=== PATIENT | male | born 1960 | race Caucasian/White ===

== ENCOUNTER 2017-10-30 11:35 | Outpatient (CLI) | payer BC | END 2017-10-30 11:36 | disposition home or self-care (01) | LOC: BICRAD 11:35 | PROVIDERS: ATTEND Family Medicine | DX: R07.89 Other chest pain (principal) | CPT/HCPCS: 71046 ==

== ENCOUNTER 2019-11-18 12:53 | Outpatient (CLI) | payer BC ==
--- NOTE | 2019-11-18 13:07 | RAD ---
RADIOGRAPH CHEST 2 VIEWS: DATE: 11/18/2019 HISTORY: 58-year-old male with dyspnea on exertion FINDINGS: There is no airspace density, pulmonary edema, pleural effusion, pneumothorax, or cardiomegaly. IMPRESSION: No acute cardiopulmonary findings.
== END 2019-11-18 12:54 | disposition home or self-care (01) ==
LOC: RAD 12:53
PROVIDERS: ATTEND Physician Assistant
DX: R06.02 Shortness of breath (principal)
CPT/HCPCS: 71046

== ENCOUNTER 2020-01-11 10:59 | Outpatient (CLI) | payer BC ==
--- NOTE | 2020-01-11 11:38 | RAD ---
TWO VIEWS CHEST: COMPARISON: 10/30/2017. HISTORY: Dyspnea. FINDINGS: Two views of the chest show normal sized cardiomediastinal silhouette. There is no evidence of consol idation, mass, or pleural effusion. The bones are unremarkable. IMPRESSION: No evidence of acute cardiopulmonary disease. POS: [id number]
== END 2020-01-11 11:00 | disposition home or self-care (01) ==
LOC: RAD 10:59
PROVIDERS: ATTEND Internal Medicine Critical Care Medicine
DX: R06.00 Dyspnea, unspecified (principal)
CPT/HCPCS: 71046

== ENCOUNTER 2021-11-01 19:30 | Outpatient (CLI) | payer BC | END 2021-11-01 19:31 | disposition home or self-care (01) | LOC: SLEEPLAB 19:30 | PROVIDERS: ATTEND Physician Assistant | DX: U07.1 COVID-19 (principal); R06.83 Snoring; R40.0 Somnolence; M72.2 Plantar fascial fibromatosis; J45.909 Unspecified asthma, uncomplicated; I47.1 Supraventricular tachycardia; I49.1 Atrial premature depolarization; G47.10 Hypersomnia, unspecified | CPT/HCPCS: 95810 ==